=== PATIENT | female | born 1985 | race Caucasian/White ===

== ENCOUNTER 2023-05-02 13:43 | Emergency (ER) | payer SELFPAY ==
[2023-05-02 14:04] VITALS: BP 131/62; O2SAT 100
[2023-05-02] MEDS ORDERED: AMOX/CLAV 875 MG/125 MG TABLET PO STA (14:08)
--- NOTE | 2023-05-02 14:10 | ED Physician Documentation ---
PD HPI HEENT - Stated complaint Stated Complaint: LT FACE SWELLING - Chief complaint Chief Complaint: Heent - History obtained from History obtained from: Patient - Additional information Additional information: She has a lot of very carious teeth. Last saw her dentist about a year ago. Over last 2 days she has developed mild pain but some facial swelling from a left maxillary molar. No fevers. PD PAST MEDICAL HISTORY - Past Medical History Past Medical History: No - Past Surgical History Past Surgical History: No - Present Medications Home Medications: Ambulatory Orders Medication Instructions Recorded Confirmed Amox/Clav 875/125 [Augmentin] 1 each PO Q12H #20 tablet 05/02/23 Chlorhexidine [Peridex] 15 ml PO BID #1 ea 05/02/23 - Allergies Allergies/Adverse Reactions: Allergies Allergy/AdvReac Type Severity Reaction Status Date / Time No Known Drug Allergies Allergy Verified 05/02/23 13:59 - Social History Does the pt smoke?: No Smoking Status: Never smoker PD ED PE NORMAL - Vitals Vital signs reviewed: Yes - General General: Alert and oriented X 3, No acute distress - HEENT HEENT: Other (Generally poor dentition with several Cavities that are down to the gumline. She is tender over the left maxillary molar with very mild overlying facial swelling. No trismus.) - Neuro Neuro: Alert and oriented X 3 Results - Vitals Vitals: Vital Signs - 24 hr 05/02/23 13:57 Temperature 36.7 C Heart Rate 78 Respiratory 18 Rate Blood Pressure 131/62 H O2 Saturation 100 Departure - Departure Disposition: 01 Home, Self Care Clinical Impression: Dental infection Condition: Good Record reviewed to determine appropriate education?: Yes Instructions: ED Dental Abscess Facial Cellulitis Follow-Up: THEA HOFFMAN [Physician No Access] - Prescriptions: Amox/Clav 875/125 [Augmentin] 1 each PO Q12H #20 tablet Chlorhexidine [Peridex] 15 ml PO BID #1 ea Comments: I sent your prescriptions electronically to the [facility] in [place]. Return if you worsen, otherwise follow-up as soon as possible with the oral surgeon. Forms: PCP List
== END 2023-05-02 14:18 | disposition home or self-care (01) ==
LOC: ED 13:43
DX: K04.7 Periapical abscess without sinus (principal)
CPT/HCPCS: 99282; 99283; A9270